=== PATIENT | male | born 1960 | race Caucasian/White ===

== ENCOUNTER 2020-12-06 15:17 | Emergency (ER) | payer OTHER ==
[2020-12-06 16:12] LABS: HEMOGLOBIN 13.2 gm/dl (14.0-17.5); RED BLOOD COUNT 4.07 M/UL (4.20-5.50); WHITE BLOOD COUNT 5.1 K/UL (4.5-11.0)
[2020-12-06 16:30] LABS: BUN/CREATININE RATIO 8 (0-10)
[2020-12-06] MEDS ORDERED: ZOFRAN ODT 4 MG4 MG SL (18:29)
[2020-12-06] MEDS ORDERED: AUGMENTIN 875-1 EACH PO (18:29)
[2020-12-06] MEDS ORDERED: BENTYL 20MG TAB20 MG PO (18:29)
[2020-12-08 00:30] LABS: ACINETOBACTER BAUMANNII Not Detected (Negative); CANDIDA ALBICANS Not Detected (Negative); CANDIDA KRUSEI Not Detected (Negative); CANDIDA TROPICALIS Not Detected (Negative); ENTEROCOCCUS Not Detected (Negative); ESCHERICHIA COLI Not Detected (Negative); HAEMOPHILUS INFLUENZAE Not Detected (Negative); KLEBSIELLA OXYTOCA Not Detected (Negative); KLEBSIELLA PNEUMONIAE Not Detected (Negative); KPC-CARBAPENEM-RESISTANCE GENE Not Detected (Negative); PROTEUS Not Detected (Negative); PSEUDOMONAS AERUGINOSA Not Detected (Negative); SERRATIA MARCESANS Not Detected (Negative); STAPHYLOCOCCUS Not Detected (Negative); STAPHYLOCOCCUS AUREUS Not Detected (Negative); STREP AGALACTIAE (GROUP B) Not Detected (Negative); STREP PYOGENES (GROUP A) Not Detected (Negative); STREPTOCOCCUS Not Detected (Negative); mecA (METHICILLIN RESIST GENE Not Detected (Negative); vanA/B (VANCOMYCIN RESIST GENE Not Detected (Negative)
[2020-12-30] MEDS ORDERED: HYDROCODON-ACE1 EAC2 PO (09:56)
[2020-12-30] MEDS ORDERED: SOMA350 MG PO (09:56)
[2020-12-30] MEDS ORDERED: ENULOSE10 GM/15 M PO (09:57)
[2020-12-30] MEDS ORDERED: CLONAZEPAM1 MG PO (09:57)
[2020-12-30] MEDS ORDERED: ELIQUIS2.5 MG PO (09:58)
[2020-12-30] MEDS ORDERED: ZOFRAN4 MG PO (09:58)
[2020-12-30] MEDS ORDERED: CYANOCOBAL1000 MCG/1 INJ (09:58)
[2020-12-30] MEDS ORDERED: LOPRESSOR 25 MG25 MG PO (09:59)
[2020-12-30] MEDS ORDERED: VITAMIN D21250 MCG PO (09:59)
[2020-12-30] MEDS ORDERED: PROTONIX40 MG PO (10:00)
[2020-12-30] MEDS ORDERED: ADULT LOW DOSE81 MG PO (10:00)
== END 2020-12-06 18:50 | disposition home or self-care (01) ==
LOC: ER1 15:17
PROVIDERS: Emergency Medicine
DX: K52.9 Noninfective gastroenteritis and colitis, unspecified (principal); J44.9 Chronic obstructive pulmonary disease, unspecified; I25.10 Atherosclerotic heart disease of native coronary artery without angina pectoris; I10 Essential (primary) hypertension; F17.200 Nicotine dependence, unspecified, uncomplicated; Z88.8 Allergy status to other drugs, medicaments and biological substances
CPT/HCPCS: 80053; 82272; 83605; 85025; 85610; 85730; 86850; 86900; 86901; 87040; 87077; 87150; 87186; 93005; 96374; 96375; 99284; J2270; J2405; Q9967